=== PATIENT | male | born 1995 | race Caucasian/White ===

== ENCOUNTER → 2020-04-08 | Outpatient (CLI) | payer MEDICAID, OTHER ==
--- NOTE | 2020-04-08 15:56 | RAD ---
Right extremity nonvascular ultrasound INDICATION: Right wrist cyst. COMPARISON: None. TECHNIQUE: Grayscale ultrasound imaging of the dorsum of the right wrist was performed in longitudina l and transverse orientation. FINDINGS: Deep to the tendons of the dorsal right wrist is a dominant collection of fluid that slightly displac es the tendons dorsally. This measures 1.4 x 0.4 x 1.5 cm. There is suggestion of additional fluid co llections present in the margins of the [id number]. There is overlying subcutaneous soft tissue ed marleni. IMPRESSION: A cyst along the deep margin of the extensor tendons of the right wrist is present and could represen t a ganglion cyst versus extensor tendon tenosynovitis. More detailed anatomic assessment could be pu rsued with MRI or CT with IV contrast if clinically warranted. Electronically signed by: Sneha Huntley MD (04/08/2020 3:54 PM) [id number]
== END ==
LOC: US 15:15
PROVIDERS: ATTEND Nurse Practitioner Family
DX: M67.431 Ganglion, right wrist (principal)
CPT/HCPCS: 76881